=== PATIENT | female | born 1950 | race Caucasian/White ===

== ENCOUNTER 2020-02-05 07:55 | Inpatient (IN) ==
[2020-01-29 14:38] LABS: Basophils # (Auto) 0.08 K/mcL (0.00-0.20); Basophils % (Auto) 1.1 % (0.0-2.0); Eosinophils # (Auto) 0.16 K/mcL (0.00-0.70); Eosinophils % (Auto) 2.1 % (0.0-7.0); Hematocrit 41.8 % (36.0-48.0); Hemoglobin 13.5 g/dL (12.0-15.0); Lymphocytes # (Auto) 1.95 K/mcL (1.50-4.80); Lymphocytes % (Auto) 25.8 % (15.0-49.0); Mean Cell Volume 91.7 fL (80.0-100.0); Mean Corpuscular HGB Conc 32.3 g/dL (31.0-36.0); Mean Platelet Volume 10.3 fL (7.4-10.4); Monocytes # (Auto) 0.62 K/mcL (0.10-0.90); Monocytes % (Auto) 8.2 % (1.0-12.0); Neutrophils % (Auto) 62.8 % (38.0-78.0); Platelet Count 232 K/mcL (140-440); RBC 4.56 M/mcL (4.00-5.20); Red Cell Distribution Width 12.8 % (11.5-14.5); WBC 7.6 K/mcL (4.5-11.0)
[2020-01-29 15:58] LABS: Appearance,Urine CLEAR (Clear); Bilirubin,Urine Negative (Negative); Color,Urine YELLOW; Culture Indicated,Urine No; Glucose,Urine (UA) Negative (Negative); Ketones,Urine Negative (Negative); Leukocyte Esterase,Urine Negative /ug (Negative); Nitrate,Urine Negative (Negative); Protein,Urine Negative (Negative); Specific Gravity,Urine 1.017 (1.000-1.035); Urine Blood Negative (Negative); Urobilinogen,Urine Negative
[2020-01-29 17:04] LABS: Blood Urea Nitrogen 22 mg/dL (8-23); Calcium 9.7 mg/dL (8.6-10.4); Carbon Dioxide 22 mmol/L (22-30); Chloride 103 mmol/L (96-108); Glomerular Filtration Rate 64; Glucose 96 mg/dL (70-105)
[~2020-02-05 07:55] MED LIST: ACETAMINOPHEN 500 MG TABLET PO SCH; CELECOXIB 200 MG CAPSULE PO SCH; PREGABALIN 75 MG CAPSULE PO SCH; ceFAZolin 2 GM in DEXTROSE 5% IN WATER 50 ML IV SCH; oxyCODONE 10 MG TAB.ER.12H PO SCH
[2020-02-05] MEDS ORDERED: SCOPOLAMINE 1 PATCH PATCH TOPICAL PRN (08:00)
[2020-02-05] MEDS ORDERED: IPRATROPIUM/ALBUTEROL 3 ML AMPUL.NEB NEB PRN ×2 (08:00→12:20)
[2020-02-05] MEDS ORDERED: GENTAMICIN SULFATE 800 MG/20 ML VIAL IR ONE (10:22)
[2020-02-05] MEDS ORDERED: DEXAMETHASONE 10 MG/ML VIAL ONE (10:57)
[2020-02-05] MEDS ORDERED: SUCCINYLCHOLINE 20 MG/ML ML IV ONE (10:57)
[2020-02-05] MEDS ORDERED: ONDANSETRON 4 MG/2 ML VIAL ONE (10:57)
[2020-02-05] MEDS ORDERED: TRANEXAMIC ACID 1,000 MG/10 ML VIAL IV ONE (10:57)
[2020-02-05] MEDS ORDERED: LIDOCAINE HCL/PF 100 MG/5 ML SYRINGE IV ONE (10:57)
[2020-02-05] MEDS ORDERED: MIDAZOLAM 2 MG/2 ML VIAL ONE (10:57)
[2020-02-05] MEDS ORDERED: ePHEDrine 50 MG/ML AMPUL IV ONE (10:57)
[2020-02-05] MEDS ORDERED: fentaNYL 250 MCG/5 ML VIAL IV ONE (10:57)
[2020-02-05] MEDS ORDERED: GLYCOPYRROLATE 0.2 MG/ML VIAL IV ONE (10:57)
[2020-02-05] MEDS ORDERED: ROPIVACAINE HCL/PF 30 ML VIAL IJ ONE (10:57)
[2020-02-05] MEDS ORDERED: PROPOFOL 200 MG/20 ML VIAL IV ONE (10:57)
[2020-02-05] MEDS ORDERED: PHENYLEPHRINE 10 MG/ML VIAL ONE (10:57)
[2020-02-05] MEDS ORDERED: KETAMINE 100 MG/ML ML ONE (10:57)
[2020-02-05] MEDS ORDERED: MEPERIDINE 25 MG/ML SYRINGE IV PRN (12:20)
[2020-02-05] MEDS ORDERED: METHOCARBAMOL 1,000 MG/10 ML VIAL IV PRN (12:20)
[2020-02-05] MEDS ORDERED: fentaNYL 100 MCG/2 ML VIAL IV PRN (12:20)
[2020-02-05] MEDS ORDERED: ONDANSETRON 4 MG/2 ML VIAL IV PRN ×2 (12:20→12:34)
[2020-02-05] MEDS ORDERED: BENZOCAINE/MENTHOL 1 LOZENGE PO PRN ×2 (12:20→12:34)
[2020-02-05] MEDS ORDERED: LACTATED RINGERS 1,000 ML IV SCH (12:30)
[2020-02-05] MEDS ORDERED: BISACODYL 10 MG SUPP.RECT PR PRN (12:34)
[2020-02-05] MEDS ORDERED: MAGNESIUM HYDROXIDE 30 ML ORAL.SUSP PO PRN (12:34)
[2020-02-05] MEDS ORDERED: FLEETS ADULT ENEMA PR PRN (12:34)
[2020-02-05] MEDS ORDERED: TRANEXAMIC ACID 1,000 MG/10 ML VIAL IV SCH (12:34)
[2020-02-05] MEDS ORDERED: HYDROmorphone 1 MG/ML SYRINGE IV PRN (12:34)
[2020-02-05] MEDS ORDERED: ACETAMINOPHEN 325 MG TABLET PO PRN (12:34)
[2020-02-05] MEDS ORDERED: POLYETHYLENE GLYCOL 3350 17 GM PACKET PO PRN (12:34)
--- NOTE | 2020-02-05 12:34 | Brief Operative Note ---
Brief Operative Note Date of procedure: 02/05/20 Pre-op diagnosis: Left shoulder rca and djd and bicep tendonopathy Post-op diagnosis: same Procedure: left shoulder reverse tsa and bicep tenodesis Grafts/Implants: Yes Anesthesia: GETA Complications: none Surgeon: Constantin Barahona Workers Compensation Manager: George Pearson Estimated blood loss (cc): 50 Tourniquet Time (Minutes): 0 Specimens Removed/Pathology: none sent Condition: stable Disposition: PACU
[2020-02-05] MEDS ORDERED: DOCUSATE SODIUM 100 MG CAPSULE PO PRN (12:37)
[2020-02-05] MEDS: KETOROLAC 15 MG/ML VIAL IV PRN ×2 (13:04→22:52)
--- NOTE | 2020-02-05 13:07 | XRay Report ---
INDICATION: Post-Op Total Shoulder TECHNIQUE: AP and Y view COMPARISON: None. FINDINGS: Status post left reverse shoulder arthroplasty. Anatomic alignment demonstrated IMPRESSION: Reverse left shoulder arthroplasty. Interpreted and Authenticated by: Kartik Koehler 02/05/20
[2020-02-05] MEDS: LACTATED RINGERS 1,000 ML IV SCH ×2 (13:33→22:53)
[2020-02-05] MEDS: HYDROcodone/APAP 10/325MG TABLET PO PRN ×2 (13:33→21:10)
[2020-02-05] MEDS: 0.9 % SODIUM CHLORIDE 10 ML SYRINGE IV SCH ×2 (14:33→20:51)
--- NOTE | 2020-02-05 15:08 | Discharge Plan ---
Discharge Instructions - TSA Patient Instructions Total Shoulder Protocol: Leave immobilizer in place except for bathing and ROM. Abduction pillow. Continue to wear sling until seen by physician. [place]man Pendulum : These exercises use momentum produced by your body to move your shoulder joint. Bend your knees and shift your weight to your front leg, then back, allowing your arm to swing in the same directions. Using the same technique, alternately shift your weight between your right and left legs, allowing your arm to swing from side to side. These exercises are also performed in counterclockwise and clockwise circular motions. Typically these exercises are performed several times per day, for a set number repetitions or minutes, such as 20 times in a row or 5 minutes at a time. Discharge Plan Patient/Caregiver Discharge Instructions Activity: as per physical therapy Diet: Regular Diet Prescriptions: New hydrocodone-acetaminophen 10-325 mg Tablet 1 - 2 tab PO Q4HP PRN (Reason: Pain Level 3-6) Qty: 75 RF: 0 docusate sodium 100 mg Capsule 100 mg PO BID Qty: 60 RF: 0 No Action pravastatin 40 mg Tablet 40 mg PO HS RF: 0 sertraline 100 mg Tablet 200 mg PO HS RF: 0 aspirin [Adult Low Dose Aspirin] 81 mg Tablet,Delayed Release (Dr/Ec) 81 mg PO QDAY RF: 0 calcium carbonate [Calcium 500] 500 mg calcium (1,250 mg) Tablet 500 mg PO QDAY RF: 0 pantoprazole 40 mg Tablet,Delayed Release (Dr/Ec) 40 mg PO QAM RF: 0 biotin 10,000 mcg Capsule 10,000 mcg PO DAILY RF: 0 lisinopril 10 mg Tablet 10 mg PO HS RF: 0 cholecalciferol (vitamin D3) [Vitamin D3] 25 mcg (1,000 unit) Capsule 25 mcg PO QDAY RF: 0 [id number] acid-lutein [Adult Multivitamin (w-lutein)] 200-137.5 mcg Tablet,Chewable 1 tab PO QAM RF: 0 docusate sodium [Colace] 100 mg Capsule 100 mg PO DAILYP PRN (Reason: Constipation) RF: 0 Other Ambulatory Orders: Brace/Splint (ONCE) Location: None Selected Ordered By: George Pearson Physical Therapy DC - TSA (Routine) Location: None Selected Ordered By: George Pearson Follow Up Plan Follow up with: George Pearson PA-C [Physician Dust Collector Treater] - 02/18/20 10:40 am Patient Disposition: Home, Self-Care Prognosis: Good Rehab Potential: Good I certify that the patient requires SNF services: No Overall status at discharge: patient is progressing back to baseline Discharge Orders: Discharge Order (Routine); Ordered 02/06/20 Ordered By: George Pearson
--- NOTE | 2020-02-05 16:21 | Operative Note ---
DATE OF OPERATION: 02/05/2020 PREOPERATIVE DIAGNOSIS: Left shoulder rotator cuff arthropathy. POSTOPERATIVE DIAGNOSES: Left shoulder rotator cuff arthropathy. PROCEDURE: Left reverse total shoulder with biceps tenodesis. SURGEON: Constantin Barahona M.D. AUDIENCE COORDINATOR: George Pearson PA-C. The PA's assistance was required for the safe and efficient completion of the entire case. This providers expertise and technical skill were required throughout the case. The PA assisted with preoperative coordination, intraoperative retraction, wound closure, dressing and splint application, as well as postoperative documentation and care coordination. ANESTHESIA: General LMA anesthesia. COMPLICATIONS: None. ESTIMATED BLOOD LOSS: About 50 mL. IMPLANTS: Size 10 stem, a metaglene with a size 36 mm glenosphere with 2 mm of offset, 2 mm of eccentricity with a standard 4 mm poly insert. Screws per nurse's note. COMPLICATIONS: None. DISPOSITION: To PACU. DESCRIPTION OF PROCEDURE: The patient was brought to the operating room, put to sleep with general LMA anesthesia. Once asleep, the patient had the left shoulder sterilely prepped in the usual sterile fashion in a beach chair position. A timeout was performed confirming this as the operative site by initials, consent form and x-rays. Ioban had been placed over the skin and then we made a deltopectoral approach with a 4-inch incision. This started from the coracoid and ended at the insertion of the deltoid. We identified the cephalic vein, which was retracted laterally and then released the subscap, which was tagged. We then released the biceps tendon, which was then repaired to the pectoralis major with two [id number] sutures. We irrigated thoroughly and after the repair we then dislocated the humeral head. This was noted to have a rotator cuff tear, severe arthritis of the glenohumeral joint. Once done, we were able to then make our neck cut at 130 degrees of inclination. We placed a protective cap and this was reduced posteriorly. Once again, we then were able to release the remnants of the biceps, release the labrum and perform a 360-degree capsular release. We placed the pin centrally and then reamed up to the size 36, removing any osteophytes, releasing the inferior capsule, and then placing a metaglene with a central screw measuring 36 mm. Two other screws were placed, 36 mm and 24 mm. This gave excellent purchase. We placed a 36 mm glenosphere with 2 mm of offset, 2 mm of eccentricity. The humerus was also prepared with a size 10 stem, standard thickness poly. This fit very nicely. We irrigated thoroughly and placed a small amount of cement distally for early fixation. A 4 mm poly insert was then placed and this was reduced without difficulty and was very stable through the full arc of motion. We irrigated thoroughly and then repaired the deltopectoral interval. We closed the skin with Stratafix and adhesive closure. Donjoy sling was fitted and given at the end of the case. There were no complications. RBH:[email or web address] Job ID: [id number] Doc ID: [id number] Constantin Barahona MD
[2020-02-05] MEDS: ceFAZolin 1 GM VIAL IV SCH (17:34)
[2020-02-05] MEDS: DOCUSATE SODIUM 100 MG CAPSULE PO SCH (20:51)
[2020-02-05] MEDS ORDERED: SIMVASTATIN 20 MG TABLET PO SCH (21:00)
[2020-02-05] MEDS ORDERED: SERTRALINE 100 MG TABLET PO SCH (21:00)
[2020-02-05] MEDS ORDERED: LISINOPRIL 10 MG TABLET PO SCH (21:00)
[2020-02-05] MEDS ORDERED: SENNOSIDES 1 TABLET PO SCH (21:00)
[2020-02-05] MEDS ORDERED: TEMAZEPAM 15 MG CAPSULE PO PRN (21:00)
[2020-02-06] MEDS: HYDROcodone/APAP 10/325MG TABLET PO PRN ×3 (01:15→09:16)
[2020-02-06] MEDS: ceFAZolin 1 GM VIAL IV SCH (02:12)
[2020-02-06] MEDS: 0.9 % SODIUM CHLORIDE 10 ML SYRINGE IV SCH (05:11)
[2020-02-06] MEDS ORDERED: PANTOPRAZOLE 40 MG TABLET PO SCH (07:30)
[2020-02-06] MEDS ORDERED: MULTIVIT,THER IRON,CA,FA & MIN 1 TABLET PO SCH (09:00)
[2020-02-06] MEDS ORDERED: CALCIUM (OYSTER SHELL) 500 MG TABLET PO SCH (09:00)
[2020-02-06] MEDS ORDERED: VITAMIN D3 1,000 UNIT TABLET PO SCH (09:00)
[2020-02-06] MEDS: DOCUSATE SODIUM 100 MG CAPSULE PO SCH (09:08)
--- NOTE | 2020-02-06 09:58 | Orthopedic Progress Note ---
SUBJECTIVE Subjective Patient information: Note initiated : 02/06/20 at 9:58 am Service Date, if different from initiated Date: [] Patient: Lubna Melendez 69 y/o F admitted on 02/05/20 for Left Reverse Total Shoulder Arthroplasty with Open. Chief Complaint: [] Constitutional Vitals: Vital Signs Temp Pulse Resp BP Pulse Ox 98.5 F 67 16 102/57 91 02/06/20 06:59 02/06/20 06:59 02/06/20 06:59 02/06/20 06:59 02/06/20 07:20 Period Temp Pulse Resp BP Sys/Donald Pulse Ox Last 24 Hr 96.9 F-99.0 F 64-85 14-22 80-172/55-83 88-100 Intake and Output 02/05/20 02/06/20 02/06/20 21:59 05:59 13:59 Intake Total 2850 2083 300 Output Total 2 200 Balance 2848 1883 300 Weight 164 lb Intake & Output: Intake & Output 02/05/20 02/06/20 02/06/20 21:59 05:59 13:59 Intake Total 2850 2083 300 Output Total 2 200 Balance 2848 1883 300 Weight 164 lb Intake: IV 50 933 Lactated Ringers 1,000 ml @ 100 933 mls/hr IV .Q10H [facility] Rx#: [id number] Ancef 2 gm In Dextrose 5% in 50 Water 50 ml @ 100 mls/hr IV PREOP KACI Rx#:[id number] Oral 800 1150 300 IV - Manual Only 2000 Output: Urine Catheter Amount 1 Void Amount 200 # of times incontinent of urine 1 Other: Meal Breakfast Percent of Meal Consumed 25% Feeding Ability Independent Urine Appearance Clear Cloudy Clear Urine Color Pale Dark Yellow Bright Yellow Urine Odor Normal Normal # Voids 1 1 OBJ DATA Labs CBC & Chem 7: 01/29/20 12:10 01/29/20 12:10 Meds: Medications Acetaminophen (Tylenol) 650 mg PO Q6HP PRN PRN Reason: PAIN/FEVER > 101 Hydrocodone Bitart/Acetaminophen ([place] 10/325mg) 0 tab PO Q4HP PRN PRN Reason: PAIN LEVEL 3-6 Last Admin: 02/06/20 09:16 Dose: 2 tab Documented by: Bisacodyl (Dulcolax) 10 mg VT Q2-3DAYS PRN PRN Reason: Constipation Calcium Carbonate/Glycine (Oscal) 500 mg PO QDAY [facility] Last Admin: 02/06/20 09:09 Dose: 500 mg Documented by: Docusate Sodium (Colace) 100 mg PO BID [facility] Last Admin: 02/06/20 09:08 Dose: 100 mg Documented by: Hydromorphone HCl (Dilaudid) 0 mg IV Q2HP PRN; Protocol PRN Reason: Per Pain Protocol Last Admin: 02/05/20 14:43 Dose: 1 mg Documented by: Lactated Ringer's (Lactated Ringers) 1,000 mls @ 100 mls/hr IV .Q10H [facility] Last Admin: 02/05/20 22:53 Dose: 100 mls/hr Documented by: Iron Carb/Multivit/Supervisor Insulation/Folic Acid (Multivitamin W/Minerals) 1 tab PO DAILY [facility] Last Admin: 02/06/20 09:09 Dose: 1 tab Documented by: Ketorolac Tromethamine (Toradol) 15 mg IV Q6HP PRN PRN Reason: Pain Stop: 02/07/20 12:34 Last Admin: 02/05/20 22:52 Dose: 15 mg Documented by: Lisinopril (Zestril) 10 mg PO [facility] Last Admin: 02/05/20 20:51 Dose: 10 mg Documented by: Magnesium Hydroxide (Milk Of Magnesia) 30 ml PO BIDP PRN PRN Reason: Constipation Ondansetron HCl (Zofran) 4 mg IV Q4HP PRN PRN Reason: Nausea And Vomiting Pantoprazole Sodium (Protonix) 40 mg PO ACB [facility] Last Admin: 02/06/20 07:06 Dose: 40 mg Documented by: Polyethylene Glycol (Miralax) 17 gm PO DAILYP PRN PRN Reason: Constipation Senna (Senokot) 2 tab PO [facility] Last Admin: 02/05/20 20:51 Dose: 2 tab Documented by: Sertraline HCl (Zoloft) 200 mg PO [facility] Last Admin: 02/05/20 20:51 Dose: 200 mg Documented by: Simvastatin (Zocor) 20 mg PO [facility] Last Admin: 02/05/20 20:51 Dose: 20 mg Documented by: Sodium Biphosphate/Sodium Phosphate (Fleets Adult) 1 dose VT Q3-4DAYS PRN PRN Reason: Constipation Sodium Chloride (Saline Flush) 10 ml IV Q8 [facility] Last Admin: 02/06/20 05:11 Dose: Not Given Documented by: Temazepam (Restoril) 15 mg PO HSP PRN PRN Reason: Insomnia Throat Lozenges (Cepacol) 1 lozenge PO PRN PRN PRN Reason: Sore Throat Last Admin: 02/05/20 21:02 Dose: 1 lozenge Documented by: Vitamin D (Vitamin D3) 1,000 unit PO DAILY [facility] Last Admin: 02/06/20 09:09 Dose: 1,000 unit Documented by: A/P Time Spent With Patient Time: Total time spent is greater than 50% in coordination of care (as documented) at patient's floor/unit and/or counseling patient:
[2020-02-06] MEDS: LACTATED RINGERS 1,000 ML IV SCH (11:57)
== END 2020-02-06 11:30 | disposition home or self-care (01) | DRG 483 ==
LOC: MEDSUR 07:55
PROVIDERS: ADMIT Orthopaedic Surgery; ATTEND Orthopaedic Surgery